=== PATIENT | male | born 1990 | race African-American/Black ===

== ENCOUNTER → 2016-09-23 | Emergency (ER) | payer OTHER, BC ==
[~2016-09-23] VITALS: Ht 187.9 cm; Wt 97.5 kg
[~2016-09-23] MED LIST: EPI EZ PEN1 MG/ML IM; HYDROCODONE BIT1 T11 PO; Motrin,Rufen800 MG PO; NAPROSYN500 MG PO; [UNRECOGNIZED DRUG - OTHER] T
== END ==
LOC: ED 19:53
DX: S39.012A Strain of muscle, fascia and tendon of lower back, initial encounter (principal); F17.200 Nicotine dependence, unspecified, uncomplicated; Z88.1 Allergy status to other antibiotic agents; X58.XXXA Exposure to other specified factors, initial encounter; Y93.89 Activity, other specified; Y92.89 Other specified places as the place of occurrence of the external cause; Y99.8 Other external cause status

== ENCOUNTER 2017-11-19 18:43 | Emergency (ER) | payer BC ==
[~2017-11-19] VITALS: Wt 104.3 kg
[2017-11-19] MEDS ORDERED: LIDEX 0.05% CRE15 GM T (18:56)
[2017-11-19] MEDS ORDERED: PREDNISONE20 M1 PO (18:56)
== END 2017-11-19 18:59 | disposition home or self-care (01) ==
LOC: ED 18:43
DX: L23.7 Allergic contact dermatitis due to plants, except food (principal)

== ENCOUNTER 2018-01-06 16:24 | Emergency (ER) | payer BC ==
[~2018-01-06] VITALS: Ht 187.9 cm; Wt 104.3 kg
[~2018-01-06 16:24] MED LIST changes: +LIDEX 0.05% CRE15 GM T; +PREDNISONE20 M1 PO
[2018-01-06] MEDS ORDERED: PREDNISONE50 MG PO (16:40)
[2018-01-06] MEDS ORDERED: VISTARIL25 MG PO (16:40)
[2018-01-08] MEDS ORDERED: VALTREX1000 MG PO (12:59)
== END 2018-01-06 16:48 | disposition home or self-care (01) ==
LOC: ED 16:24
DX: L25.9 Unspecified contact dermatitis, unspecified cause (principal); F17.200 Nicotine dependence, unspecified, uncomplicated

== ENCOUNTER 2018-01-17 15:02 | Emergency (ER) | payer BC ==
[~2018-01-17] VITALS: Ht 187.9 cm; Wt 104.3 kg
[~2018-01-17 15:02] MED LIST changes: +PREDNISONE50 MG PO; +VALTREX1000 MG PO; +VISTARIL25 MG PO
[2018-01-17] MEDS ORDERED: HYDROXYZINE HCL25 M1 PO (15:08)
[2018-01-17] MEDS ORDERED: VALTREX500 MG PO (15:08)
[2018-01-17] MEDS ORDERED: EPIPEN 2-P0.3 MG/0.3 IJ (15:36)
== END 2018-01-17 16:03 | disposition home or self-care (01) ==
LOC: ED 15:02
DX: B02.9 Zoster without complications (principal); Z79.899 Other long term (current) drug therapy

== ENCOUNTER 2022-09-06 20:16 | Emergency (ER) | payer MEDICAID ==
[~2022-09-06 20:16] MED LIST changes: +EPIPEN 2-P0.3 MG/0.3 IJ; +HYDROXYZINE HCL25 M1 PO; +VALTREX500 MG PO
[2022-09-06] MEDS ORDERED: KENALOG 0.1%80 GM T (21:05)
== END 2022-09-06 21:20 | disposition home or self-care (01) ==
LOC: ED 20:16
DX: L25.5 Unspecified contact dermatitis due to plants, except food (principal); D64.9 Anemia, unspecified

== ENCOUNTER 2023-06-19 07:44 | Emergency (ER) | payer MEDICAID ==
[~2023-06-19] VITALS: Ht 187.9 cm; Wt 117.9 kg
[~2023-06-19 07:44] MED LIST changes: +KENALOG 0.1%80 GM T
== END 2023-06-19 12:12 | disposition left against medical advice (07) ==
LOC: ED 07:44
DX: R51.9 Headache, unspecified (principal); J02.9 Acute pharyngitis, unspecified; R68.83 Chills (without fever); Z53.21 Procedure and treatment not carried out due to patient leaving prior to being seen by health care provider

== ENCOUNTER 2023-09-20 20:13 | Emergency (ER) | payer MEDICAID ==
[~2023-09-20] VITALS: Ht 188 cm; Wt 117.9 kg
[2023-09-20] MEDS ORDERED: IBU800 MG PO (20:28)
[2023-09-20] MEDS ORDERED: VIBRAMYCIN100 MG PO (20:28)
[2023-09-20] MEDS ORDERED: HYDROCODONE-AC1 EAC1 PO (20:28)
[2023-09-20] MEDS ORDERED: Acetaminophen/Hydrocodone 5 MG/325 MG TABLET PO ONE (20:30)
[2023-09-20] MEDS ORDERED: Doxycycline Hyclate 100 MG CAP PO ONE (20:35)
== END 2023-09-20 21:08 | disposition home or self-care (01) ==
LOC: ED 20:13
DX: K61.1 Rectal abscess (principal); D64.9 Anemia, unspecified

== ENCOUNTER 2023-12-25 15:45 | Emergency (ER) | payer OTHER ==
[~2023-12-25] VITALS: Ht 187.9 cm; Wt 117.9 kg
[~2023-12-25 15:45] MED LIST changes: +HYDROCODONE-AC1 EAC1 PO; +IBU800 MG PO; +VIBRAMYCIN100 MG PO
== END 2023-12-25 16:12 | disposition home or self-care (01) ==
LOC: ED 15:45
DX: Z02.83 Encounter for blood-alcohol and blood-drug test (principal); D64.9 Anemia, unspecified

== ENCOUNTER → 2024-09-12 | Outpatient (CLI) | payer BC ==
[2024-09-12 13:18] LABS: BASO % 0.6 % (0.0-1.0); EOS # 0.2 10*3/uL (0.0-0.4); EOS % 3.7 % (1.0-4.0); HEMATOCRIT 42.3 % (42.0-52.0); MEAN CELL VOLUME 75.3 fl (80.0-94.0); MEAN CORPUSCULAR HGB 24.7 pg (27.0-31.0); MEAN CORPUSCULAR HGB CONC 32.9 g/dl (33.0-37.0); MEAN PLATELET VOLUME 10.6 fl (9.6-12.3); MONO # 0.4 10*3/uL (0.1-1.0); MONO % 6.8 % (3.0-9.0); NEUT # 3.4 10*3/uL (2.3-7.9); NEUT % 55.1 % (47.0-73.0); PLATELET COUNT AUTOMATED 519 10*3/uL (130-400); RED BLOOD COUNT 5.62 10*6/uL (4.50-5.90); RED CELL DISTRI WIDTH 13.2 % (0-14.5); WHITE BLOOD COUNT 6.2 10*3/uL (4.8-10.8)
[2024-09-12 13:51] LABS: ALKALINE PHOSPHATASE 81 U/L (46-116); BUN 17 mg/dl (9-23); CHLORIDE 96 mmol/L (98-107); CHOLESTEROL 288 mg/dL (<200); LDL CHOLESTEROL 210 mg/dL (9-159); POTASSIUM 4.2 mmol/L (3.4-5.1); SGPT/ALT 36 U/L (5-49); TOTAL PROTEIN 8.6 gm/dL (6.0-8.0); TRIGLYCERIDES 196 mg/dl (<150)
[2024-09-12 14:16] LABS: FREE T4 1.51 ng/dl (0.89-1.76)
[2024-09-14 16:08] LABS: GLUTAMIC ACID DECARB AB <5.0 U/mL (0.0-5.0)
== END | disposition home or self-care (01) ==
LOC: LAB 12:48
PROVIDERS: ATTEND Internal Medicine
DX: E11.9 Type 2 diabetes mellitus without complications (principal); G62.9 Polyneuropathy, unspecified